=== PATIENT | female | born 1995 | race Two or more races ===

== ENCOUNTER 2024-11-27 19:50 | Emergency (ER) | payer OTHER ==
[~2024-11-27] VITALS: Ht 160 cm; Wt 54.4 kg
[~2024-11-27 19:50] MED LIST: AMOX-CLAV 875-1 EACH PO; AYR SALINE NA14.1 GM NASAL; CEPHALEXIN500 MG PO; DUI500 PO; IRON236 MG PO; KETO10TA2 PO; MEDROL4 MG PO; MYLANTA COAT-C355 ML PO; ONDANSETRON ODT4 MG PO; PEPCID AC20 MG PO; PEPCID40 MG PO; PRENA1 CHEW TA1.4 MG PO; PRENATAL CAPLE1 EAC1 PO; VALACYCLOVIR1000 MG PO; VALTREX1000 MG PO; ZOVIRAX30 GM TOP
[2024-11-27 20:43] LABS: BASO % 1.2 % (0.1-1.2); EOS # 0.18 (0.04-0.54); EOS % 2.1 % (0.7-7.0); LYMPH # 3.15 (1.18-3.74); LYMPH % 36.5 % (19.3-53.1); MEAN PLATELET VOLUME 11.20 fl (9.4-12.4); MONO # 0.80 (0.24-0.82); MONO % 9.3 % (4.7-12.5); NEUT # 4.37 (1.56-6.13); NEUT % 50.7 % (34.0-71.1); RED CELL DISTRIBUTION WIDTH 12.6 % (11.6-14.4)
[2024-11-27 21:15] LABS: INR 1.09
[2024-11-27 21:20] LABS: ALT/SGPT 17 U/L (12-78); AST/SGOT 15 U/L (15-37); BILIRUBIN TOTAL 0.13 mg/dL (0.3-1.2); BUN CREA RATIO 13 (7.0-25.0); CREATININE SERUM 0.75 mg/dL (0.55-1.02); GFR 92.01; GLOBULINA 4.0 G/DL (2.4-3.5); GLUCOSE FASTING 79 mg/dL (65-100); OSMOLALITY SERUM 283 MOSM/KG (275-295); PHOSPHOKINASE CREATININE 112 U/L (26-192)
[2024-11-27 21:22] LABS: HCG QUANTITATIVE < 1 mUI/mL (1-3)
[2024-11-28 03:50] VITALS: BP 98/60; O2SAT 99
== END 2024-11-28 03:52 | disposition home or self-care (01) ==
LOC: ER 19:50
PROVIDERS: General Practice
DX: H54.61 Unqualified visual loss, right eye, normal vision left eye (principal)